=== PATIENT | male | born 1955 | race Two or more races ===

== ENCOUNTER → 2016-09-12 | Outpatient (CLI) | payer OTHER ==
--- NOTE | 2016-09-12 16:13 | DI ---
RIGHT KNEE, 09/12/2016 2:37 PM: Clinical History: Right anterior knee pain. Previous Exam: 08/11/2006. 3 views are submitted. The patient is status post total right knee replacement. The prosthetic device articulates normally. There is no evidence of loosening of the prosthetic device. Reading: Status post total right knee replacement. The prosthetic device articulates normally and there is no evidence of loosening of the prosthesis.
== END ==
LOC: MOB RAD 14:39
PROVIDERS: ATTEND Physician Assistant
DX: M25.561 Pain in right knee (principal); R03.0 Elevated blood-pressure reading, without diagnosis of hypertension; Z96.651 Presence of right artificial knee joint
CPT/HCPCS: 73562; 99213; G0463

== ENCOUNTER → 2016-09-17 | Outpatient (CLI) | payer OTHER ==
--- NOTE | 2016-09-17 12:10 | DI ---
AP PELVIS and RIGHT HIP, 09/17/2016 10:44 AM: Clinical History: Right hip pain. Previous Exam: None at this facility. There is no soft tissue abnormality. The bony structures of the pelvis are normal. 2 views of the rig ht hip show joint space narrowing medially and inferiorly. There is acetabular over coverage inferior ly, and there is bony proliferation along the inferomedial margin of the femoral head. There is also asphericity of the femoral head with a dysplastic "bump" and subchondral cystic changes. 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 The AP projectio n of the left hip is normal. Readin. 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 2. The AP pelvis view is unremarkable.
== END ==
LOC: ORTHO 10:46
PROVIDERS: ATTEND Physician Assistant
DX: M25.551 Pain in right hip (principal); M25.561 Pain in right knee; M16.11 Unilateral primary osteoarthritis, right hip; Z96.651 Presence of right artificial knee joint
CPT/HCPCS: 73502; 99203; G0463

== ENCOUNTER 2016-09-19 12:47 | Day surgery (SDC) | payer OTHER ==
[~2016-09-19 12:47] MED LIST: BETAMET ACET/BETAMET NA PH 6 MG/1 ML - 5 ML ONE; Iopamidol Inj 61% 50 ML VIAL ONE; LIDOCAINE MPF 2% - 5 ML (20 MG/1 ML) ONE; LIDOCAINE W/ SODIUM BICARB 0.5 ML SYR ONE; ROPIVACAINE HCL 7.5 MG/1 ML - 20 ML ONE
[2016-09-19 14:52] VITALS: RESP 16; TEMP 97.8
== END 2016-09-19 14:36 | disposition home or self-care (01) ==
LOC: SDSC 12:47
PROVIDERS: ATTEND Orthopaedic Surgery
DX: M16.11 Unilateral primary osteoarthritis, right hip (principal)
CPT/HCPCS: 20610; 76000; J0702; J2001

== ENCOUNTER → 2016-09-24 | Outpatient (CLI) | payer OTHER | LOC: MMPC 09:00 | PROVIDERS: ATTEND Family Medicine | DX: I10 Essential (primary) hypertension (principal); F32.4 Major depressive disorder, single episode, in partial remission; E66.09 Other obesity due to excess calories | CPT/HCPCS: 99214; G0463 ==

== ENCOUNTER → 2016-09-26 | Outpatient (CLI) | payer OTHER | LOC: MMPC 10:00 | PROVIDERS: ATTEND Orthopaedic Surgery | DX: M16.11 Unilateral primary osteoarthritis, right hip (principal) | CPT/HCPCS: 99214; G0463 ==